=== PATIENT | female | born 1990 | race American Indian/Alaskan Native ===

== ENCOUNTER 2016-09-24 19:01 | Emergency (ER) | payer MEDICAID, OTHER ==
[2016-09-24 20:08] LABS: Hematocrit 37.6 % (30.3-42.9); Hemoglobin 12.5 gm/dl (10.1-14.3); Mean Corpuscular HGB Conc 33 % (30-34); Mean Corpuscular Hemoglobin 23 pg (28-32); Mean Corpuscular Volume 69 fl (79-97); Platelet Count 206 K/mm3 (140-440); Red Blood Count 5.43 M/mm3 (3.65-5.03); Red Cell Distribution Width 14.1 % (13.2-15.2)
[2016-09-24 20:33] LABS: Albumin 3.5 g/dL (3.9-5); Albumin/Globulin Ratio 0.9 %; Alkaline Phosphatase 40 units/L (35-129); Blood Urea Nitrogen 6 mg/dL (7-17); Calcium 9.5 mg/dL (8.4-10.2); Carbon Dioxide 19 mmol/L (22-30); Chloride 102.8 mmol/L (98-107); Glucose 88 mg/dL (65-100); Lipase 15 units/L (13-60); Sodium 133 mmol/L (137-145); Total Protein 7.4 g/dL (6.3-8.2)
[2016-09-24 20:35] LABS: Alanine Aminotransferase 13 units/L (7-56); Anion Gap 16 mmol/L; Potassium 4.6 mmol/L (3.6-5.0)
[2016-09-24 20:52] VITALS: BP 145/88
[2016-09-24 21:39] LABS: Bacteria,Urine 2+ /HPF (Negative); Bilirubin,Urine NEG (Negative); Blood,Urine SM (Negative); Ketones,Urine TR mg/dL (Negative); Leukocyte Esterase,Urine MOD (Negative); Mucus,Urine 1+ /HPF; Nitrite,Urine NEG (Negative); Protein,Urine <15 mg/dL mg/dL (Negative); Urobilinogen,Urine < 2.0 mg/dL (<2.0)
--- NOTE | 2016-09-24 22:03 | Ultrasound Report ---
FINAL REPORT EXAM: US OB \T\lt; = 14 WEEKS FETUS HISTORY: pain, bleeding TECHNIQUE: Transabdominal and transvaginal sonography of the pelvis. PRIORS: None. FINDINGS: There is a single, live intrauterine . Ultrasound estimated gestational age is 7 weeks 4 days. Ultrasound estimated date of confinement is 09 May 2017. heart motion is detected. Very small subchorionic hemorrhage incidentally noted. The right ovary measures 3.2 x 2.2 x 2.4 cm and contains small, cystic focus measuring 1.6 cm. The left ovary measures 2.7 x 1.9 x 2 cm and contains small, cystic focus measuring 1.7 cm. Small amount of free fluid in pelvic cul-de-sac. Remainder of uterus and adnexa grossly unremarkable. IMPRESSION: 1. Single, live intrauterine . 2. 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
--- NOTE | 2016-09-24 22:03 | Ultrasound Report ---
FINAL REPORT EXAM: US OB TRANSVAGINAL HISTORY: pain, bleeding TECHNIQUE: Transabdominal and transvaginal sonography of the pelvis. PRIORS: None. FINDINGS: There is a single, live intrauterine . Ultrasound estimated gestational age is 7 weeks 4 days. Ultrasound estimated date of confinement is 09 May 2017. heart motion is detected. Very small subchorionic hemorrhage incidentally noted. The right ovary measures 3.2 x 2.2 x 2.4 cm and contains small, cystic focus measuring 1.6 cm. The left ovary measures 2.7 x 1.9 x 2 cm and contains small, cystic focus measuring 1.7 cm. Small amount of free fluid in pelvic cul-de-sac. Remainder of uterus and adnexa grossly unremarkable. IMPRESSION: 1. Single, live intrauterine . 2. 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
--- NOTE | 2016-09-24 23:55 | Emergency Department Report ---
HPI - General Chief Complaint: Abdominal Pain Time Seen by Provider: 09/24/16 23:09 - HPI HPI: Patient is a 25-year-old female presents to the at 7 weeks gestation who presents with right-sided flank pain times today and nausea and vomiting 2 weeks. Patient states she Found out She Was 2 Days Ago When She Went to the ER for Nausea and Vomiting. She States She Is Not Taking Any Medication. She Denies Fever/Chills/Diarrhea/Constipation/Abdominal Pain/ Vaginal Bleeding. ED Past Medical Hx - Past Medical History Previous Medical History?: No - Surgical History Past Surgical History?: No - Social History Smoking Status: Current Every Day Smoker Substance Use Type: None - Medications Home Medications: Home Medications Medication Instructions Recorded Confirmed Last Taken Type Doxylamine/Pyridoxine HCl 2 each PO QHS #40 tablet. 09/24/16 Unknown Rx [Diclegis Dr 10-10 mg Tablet] Nitrofurantoin Labette/M-Cryst 100 mg PO Q12HR #14 capsule 09/24/16 Unknown Rx [Macrobid CAP] Pnv95/Ferrous Fumarate/FA 1 each PO DAILY #40 tablet 09/24/16 Unknown Rx [ Formula Tablet] Acetaminophen [Acetaminophen TAB] 500 mg PO Q6HR #30 tablet 09/25/16 Unknown Rx ED Review of Systems ROS: Stated complaint: VOMITTING/ Other details as noted in HPI Constitutional: denies: chills, fever Eyes: denies: eye pain, eye discharge, vision change ENT: denies: ear pain, throat pain Respiratory: denies: cough, shortness of breath, wheezing Cardiovascular: denies: chest pain, palpitations Endocrine: no symptoms reported Gastrointestinal: nausea, vomiting. denies: abdominal pain, diarrhea, constipation, hematemesis Genitourinary: denies: urgency, dysuria, frequency, hematuria, discharge Musculoskeletal: denies: back pain, joint swelling, arthralgia Skin: denies: rash, lesions Neurological: denies: headache, weakness, paresthesias Psychiatric: denies: anxiety, depression Hematological/Lymphatic: denies: easy bleeding, easy bruising Physical Exam - Physical Exam Vital Signs: Vital Signs 09/24/16 19:31 Temperature 98.4 F Pulse Rate 82 Respiratory 16 Rate Blood Pressure 145/88 [Right] O2 Sat by Pulse 100 Oximetry Physical Exam: GENERAL: Alert and oriented x3, no apparent distress, Normal Gait, atraumatic. HEAD: Head is normocephalic and a-traumatic. EYES: Extra ocular muscles are intact. Pupils are equal, round, and reactive to light and accommodation. NECK: Supple. Non edematous, No lymphadenopathy or thyromegaly. No C-spine tenderness LUNGS: Symetrical with respiration, No wheezing, no rales or crackles, CTAB. HEART: S1, S2 present, regular rate and rhythm without murmur, no rubs, no gallops. Non tender to palpation ABDOMEN: No organomegaly was noted,Positive bowel sounds, soft, and non- distended. Nontender to palpation on all Quadrants, right sided CVA tenderness. EXTREMITIES/MUSCULOSKELETAL: No cyanosis, clubbing, rash, lesions or edema. Full ROM bilaterally. UE/LE Pulses 2+ bilaterally. LE and UE 5+ strength bilaterally, straight leg raise negative bilaterally NEUROLOGIC: The patient is cooperative with no focal neurologic deficits. Cranial nerves II through XII are grossly intact. Normal speech. SKIN: Warm and dry, No lesions, No ulceration or induration present. ED Course Vital Signs 09/24/16 19:31 Temperature 98.4 F Pulse Rate 82 Respiratory 16 Rate Blood Pressure 145/88 [Right] O2 Sat by Pulse 100 Oximetry ED Medical Decision Making - Lab Data Result diagrams: 09/24/16 19:39 09/24/16 19:39 - Medical Decision Making 25-year-old female presents with urinary tract infection ED course: CBC, CMP, urinalysis, urine test OB ultrasound ordered. CBC shows within normal limits, CMP shows mild dehydration low BUN and creatinine and sodium. Urinalysis positive for bacteria, test positive. Elevated hCG Ultrasound shows intrauterine , see above Discussed all this finding is a patient. Discussed the patient will need to increase hydration 8-10 times a day. Discussed trial of difficulty juice which should help with nausea. Patient given Reglan ED. Patient able to tolerate fluids in the ED prior to discharge. She understands instructions given Discussed with her follow-up with [facility] as referred. Vital signs are stable she is in no acute distress Critical care attestation.: If time is entered above; I have spent that time in minutes in the direct care of this critically ill patient, excluding procedure time. ED Disposition Clinical Impression: UTI (urinary tract infection) during Qualifiers: Trimester: first trimester Qualified Code(s): O23.41 - Unspecified infection of urinary tract in , first trimester Normal IUP (intrauterine ) on ultrasound Qualifiers: Trimester: first trimester Qualified Code(s): Z34.91 - Encounter for supervision of normal , unspecified, first trimester Disposition: TO HOME OR SELFCARE Is pt being admited?: No Does the pt Need Aspirin: No Condition: Stable Instructions: Abdominal Pain (ED), Urinary Tract Infection in Women (ED), Morning Sickness (ED), (ED) Prescriptions: Doxylamine/Pyridoxine HCl [Diclegis Dr 10-10 mg Tablet] 2 each PO QHS #40 tablet. Acetaminophen [Acetaminophen TAB] 500 mg PO Q6HR #30 tablet Nitrofurantoin Labette/M-Cryst [Macrobid CAP] 100 mg PO Q12HR #14 capsule Pnv95/Ferrous Fumarate/FA [ Formula Tablet] 1 each PO DAILY #40 tablet Referrals: PRIMARY CARE, [Primary Care Provider] - 3-5 Days ANGELICA PAYNE MD [Referring] - 3-5 Days MARIO PAYNE MD [Referring] - 3-5 Days DARIN HUMMEL MD [Referring] - 3-5 Days SARANYA HUMMEL MD [Referring] - 3-5 Days VALENTINE HUMMEL MD [Staff Physician] - 3-5 Days Forms: Accompanied Note, Work/School Release Form(ED) Time of Disposition: 00:01
[2016-09-24] MEDS ORDERED: REGLAN PO ONE (23:59)
== END 2016-09-25 00:05 | disposition home or self-care (01) ==
LOC: ED 19:01
DX: O23.41 Unspecified infection of urinary tract in pregnancy, first trimester (principal); F17.200 Nicotine dependence, unspecified, uncomplicated; Z34.91 Encounter for supervision of normal pregnancy, unspecified, first trimester; Z3A.01 Less than 8 weeks gestation of pregnancy
CPT/HCPCS: 36415; 76801; 76817; 80053; 81001; 83690; 84702; 84703; 85025